=== PATIENT | female | born 1960 | race Caucasian/White ===

== ENCOUNTER 2019-05-31 05:24 | Day surgery (SDC) | payer OTHER ==
[~2019-05-31 05:24] MED LIST: CATAFLAN PO; LEVOTHYROXINE25 MCG PO; PROAIR HFA8.5 GM IH; SINGULAIR10 MG PO; SYMBICORT 16010.2 GM IH; ULTRACET PO
[2019-05-31] MEDS ORDERED: KETO10TA2 PO (11:19)
[2019-05-31] MEDS ORDERED: PERCOCET 5-3251 EACH PO (11:20)
[2019-05-31] MEDS ORDERED: RECTICARE30 GM TOP (11:21)
== END 2019-05-31 14:45 | disposition home or self-care (01) ==
LOC: CIR.AMB 05:24
DX: K64.8 Other hemorrhoids (principal); K60.1 Chronic anal fissure

== ENCOUNTER 2022-10-02 05:26 | Day surgery (SDC) | payer OTHER ==
[~2022-10-02] VITALS: Ht 162.6 cm; Wt 83.5 kg
[~2022-10-02 05:26] MED LIST changes: +BETAXOLOL HCL10 MG PO; +FLONASE; +KETO10TA2 PO; +PAXIL30 MG PO; +PERCOCET 5-3251 EACH PO; +RECTICARE30 GM TOP
[2022-10-02] MEDS ORDERED: KETO10TA2 PO (08:29)
[2022-10-02] MEDS ORDERED: NEURONTIN300 MG PO (08:29)
[2022-10-02] MEDS ORDERED: PERCOCET 5-3251 EACH PO (08:29)
== END 2022-10-02 14:10 | disposition home or self-care (01) ==
LOC: CIR.AMB 05:26
PROVIDERS: ATTEND Surgery
DX: K60.1 Chronic anal fissure (principal); K59.09 Other constipation; K57.30 Diverticulosis of large intestine without perforation or abscess without bleeding; Z20.822 Contact with and (suspected) exposure to COVID-19